=== PATIENT | male | born 1975 ===

== ENCOUNTER 2019-01-24 07:35 | Inpatient (IN) | payer OTHER ==
[~2019-01-24 07:35] MED LIST: CLONAZEPAM1 MG PO; CLONAZEPAM2 M1 PO; FIORINAL-COD 31 EACH PO; TRAMADOL; ZANAFLEX2 M1
[2019-01-25] MEDS ORDERED: SERTRALINE HCL50 MG PO (16:00)
[2019-01-25] MEDS ORDERED: SERTRALINE HCL100 MG PO (16:01)
[2019-01-25] MEDS ORDERED: ULTRAM50 MG (16:02)
== END 2019-01-25 17:21 | disposition home or self-care (01) | DRG 349 ==
LOC: CIR.AMB 07:35 → O/R 17:42 → SURH 17:42 → CIR.AMB 19:00 → SURH 01-25 17:21
PROVIDERS: ADMIT Colon & Rectal Surgery
PROC: 0DBP7ZZ Excision of Rectum, Via Natural or Artificial Opening (ICD-10-PCS; 2019-01-24)
PROC: 0DBP7ZZ Excision of Rectum, Via Natural or Artificial Opening (ICD-10-PCS; principal; 2019-01-24 19:00)
DX: D12.8 Benign neoplasm of rectum (principal); F41.1 Generalized anxiety disorder